=== PATIENT | female | born 1970 | race Caucasian/White ===

== ENCOUNTER 2018-10-06 10:25 | Day surgery (SDC) | payer OTHER ==
[2018-10-06] VITALS (21 sets, daily range): BP systolic 120–170; BP diastolic 58–81; PULSE 82–96; RESP 15–18; Ht 160 cm; Wt 69.4 kg
[~2018-10-06] VITALS: Ht 160 cm; Wt 69.4 kg
[~2018-10-06 10:25] MED LIST: IRON1TAB78 PO; OMEP20CA9 PO; SOD CHLORIDE 0.9% 1,000 ML IV SCH
[2018-10-06] MEDS ORDERED: NITR-58 PO (11:01)
[2018-10-06] MEDS ORDERED: NOL20 PO (11:02)
[2018-10-06] MEDS ORDERED: METR70GE15 VAG (11:03)
[2018-10-06] MEDS ORDERED: POLYMYXIN/BACITRACIN 1L IRRIG ONE (11:48)
[2018-10-06] MEDS ORDERED: BUPIVACAINE 0.25%/EPI (SDV) 30 ML INJ ONE (11:48)
[2018-10-06] MEDS ORDERED: EPINEPHrine 1 MG INJ ONE (11:53)
--- NOTE | 2018-10-06 11:55 | HPN ---
Date/Time of Note Date/Time of Note DATE: 10/06/18 TIME: 11:54 Interval H&P Admission Note Pt. seen H&P reviewed: Systems changes noted below patient treated for symptomatic urinary tract infection. will only perform breast reduction and port removal today RADHA ADAMS MD Oct 06, 2018 11:55
--- NOTE | 2018-10-06 11:57 | OPR ---
Date/Time of Note Date/Time of Note DATE: 10/06/18 TIME: 11:55 Operative Report Free Text/Dictation Plastic Surgery Operative Report Preoperative diagnosis: macromastia and cervicalgia Postoperative diagnosis: same Procedure:bilateral breast reduction Surgeon: magdalena Candelario.: JERRY briceño Anesthesia:general EBL:min IV fluids:per flow sheet Findings:n/a Complications:none Dispo:home Indications for procedure:48 yo F presents for breast reconstruction. The orginal plan was to perform a left latissimus flap + regional education coordinator and a right reduction, but she developed a UTI and due to the increased risk of infection we will only perform a right reduction today. We discussed the risks, benefits, and alternatives of performing this procedure including the risks of bleeding, infection, wound healing problems, changes in nipple sensation, partial or total nipple necrosis, asymmetry, fat necrosis, seroma, and for revision. The patient states that she understands these risks and would like to proceed with the procedure. All questions were answered, no guarantees were given with regards the outcome of this procedure Description of procedure: Preoperatively, with the patient in the sitting position, a right Paul pattern reduction mammoplasty with vertical limbs of 8 cm and pedicle width of 8cm was marked. The patient was taken to the operating room at [facility] where general anesthesia was induced. Next, she was prepped and draped in the usual sterile fashion. First, the 42 mm areola marker was placed around the areola and total of 40cc of a dilute epinephrine with exparel solution was injected into the planned area of de-epithelialization in the breast. The pedicle was then de-epithelialized with the 10 blade. Attention was then turned to the left breast where the incision around the pedicle was deepened with the peak plasma blade. Next, the remainder of the incisions were made with the peak plasma blade, and a medial flap was developed. A lateral flap was then developed with the plasma blade as well, and then the medial and lateral dissections were joined superiorly. The incisions around the pedicle were deepened to the level of the chest wall, taking special care to leave a fascial layer over the chest wall to preserve sensation, and then the tissue intervening between the flaps and pedicle was excised. The breast was irrigated with antibiotic irrigation, hemostasis was achieved with the bipolar cautery, and then the breast was towel clipped closed. The breast was inspected and had achieved the desired result. Therefore, the towel clips were removed, the breast was irrigated with antibiotic irrigation, hemostasis was achieved with the bipolar cautery, and 60cc of the same exparel solution were injected throughout the breast. A #15 Tyrese drain was inserted into the breast through a stab incision laterally and was secured with 2-0 nylon suture. A 3 way stitch was placed with 2-0 vicryl suture. Next, the incisions were closed with a deep layer of 3-0 Vicryl sutures, 4-0 Monocryl suture, and then steristrips. 3cc of the same solution was injected into the port scar. The incision was opened with the 10 blade and dissection proceeded with the cautery to the port capsule. The capsule was opened and the port was dissected free with the scissors and was removed in its entirety. Pressure was held for 5 minutes and there was no bleeding. Therefore, the incision was irrigated with antibiotic irrigation, hemostasis was achieved with the bipolar cautery, and the incision was closed with 3-0 vicryl suture and 4-0 monocryl suture. The patient tolerated the procedure well, there were no complications, follow up information and wound care instructions were given. The nipples were pink and viable at the completion of the case. The patient tolerated the procedure well, there were no complications, she'll follow up in 1 week Preoperative Diagnosis history of left breast CA Postoperative Diagnosis saame Operation/Procedure Performed right breast reduction Surgeon see signature line Video Manager JERRY briceño Anesthesia Type: general Estimated Blood Loss: minimal Transfusion none Specimen breast tissue Grafts/Implants none Complications none Pt Condition Post Procedure: stable Procedure Description see dictation RADHA ADAMS MD Oct 06, 2018 11:57
[2018-10-06] MEDS ORDERED: ACETAMINOPHEN 325 MG TAB PO PRN (12:00)
[2018-10-06] MEDS ORDERED: morphine 2 MG INJ IV PRN (12:00)
[2018-10-06] MEDS ORDERED: HYDROCODONE/APAP (5/325) TAB PO PRN (12:00)
[2018-10-06] MEDS ORDERED: ONDANSETRON 4 MG INJ IV PRN (12:00)
--- NOTE | 2018-10-06 12:03 | PREAC ---
Date/Time of Note Date/Time of Note DATE: 10/06/18 TIME: 12:00 Anesthesia Eval and Record Evaluation Time Pre-Procedure Interview DATE: 10/06/18 TIME: 12:00 Age 48 Sex female NPO: 8 hrs Preoperative diagnosis s/p Breast Cancer and Mastectomy Planned procedure Right Breast reduction Past Medical History Past Medical History: Includes Musculoskeletal: Other (Hx of Breast Cancer) Infection(s): Other (UTI Hx on ABX) Surgery & Anesthesia Issues No known issue Meds Anticoagulation: No Beta Duglas within 24 hr: No Reason Beta Duglas not given: Pt. not on B-Duglas Reported Medications Metronidazole* (Metrogel* Vaginal) 0.75% -70 Gram Gel.w.appl, 1 APPFUL VAG HS, TUB 10/06/18 Tamoxifen Citrate* (Tamoxifen Citrate*) 20 Mg Tab, 20 MG PO DAILY, TAB 10/06/18 Nitrofurantoin Monohyd Macrocr* (Macrobid*) 100 Mg Capsr, 100 MG PO BID, CAP STARTED 10-01-18 FOR 7 DAYS 10/06/18 Discontinued Reported Medications Iron,Carbonyl/Vit C/Vit B12/Fa (IRON 100 PLUS TABLET) 1 Each Tablet, 1 EACH PO, TAB 10/06/15 Omeprazole* (Prilosec*) 20 Mg Capsule.dr, 20 MG PO BID, CAP 10/06/15 Current Medications Sodium Chloride 1,000 ml @ 20 mls/hr Q24H IV Last administered on 10/06/18at 11:19; Admin Dose 20 MLS/HR; Start 10/06/18 at 07:00; Stop 10/08/18 at 08:59 Acetaminophen/ Hydrocodone Bitart ([place] (5/325)) 2 tab Q4H PRN PO .PAIN 4-6; Start 10/06/18 at 12:00 Morphine Sulfate (morphine) 2 mg ONCE PRN IV .SEVERE PAIN 7-10; Start 10/06/18 at 12:00 Ondansetron HCl (Zofran Inj) 4 mg Q6H PRN IV NAUSEA/VOMITING; Start 10/06/18 at 12:00 Acetaminophen (Tylenol Tab) 325 mg Q4H PRN PO MILD PAIN(1-3)OR ELEVATED TEMP; Start 10/06/18 at 12:00 Meds reviewed: Yes Allergies Coded Allergies: No Known Drug Allergies (Unverified Allergy, Unknown, 10/06/18) Allergies Reviewed: Yes Labs/Studies Labs Reviewed: Reviewed by anesthesiologist test: Negative Studies: ECG (n/a), CXR (n/a) Pre-procedure Exam Last vitals Vital Signs Date Temp Pulse Resp B/P (MAP) Pulse Ox O2 O2 Flow FiO2 Time Delivery Rate 10/06/18 98.7 88 18 123/75 96 Room Air 11:21 (91) Airway: Adequate mouth opening, Adequate thyromental dist Mallampati: Mallampati II Teeth: Normal Lung: Normal Heart: Normal ASA Physical Status ASA physical status: 2 Emergency: None Planned Anesthetic General/MAC: ETT Planned Pain Management Parenteral pain med Pre-operative Attestations Prior to commencing anesthesia and surgery, the patient was re-evaluated, there was verification of: *The patient's identity *The results of appropriate recent lab work and preoperative vital signs *The above evaluation not changing prior to induction *Anesthetic plan, risk benefits, alternative and complications discussed with patient/family; questions answered; patient/family understands, accepts and wishes to proceed. TERRIE BOSS MD Oct 06, 2018 12:03
[2018-10-06] MEDS ORDERED: MIDAZOLAM 1 MG/ML 2 ML INJ ONE (12:28)
[2018-10-06] MEDS ORDERED: ROCURONIUM 50 MG INJ ONE (12:28)
[2018-10-06] MEDS ORDERED: FENTAnyl 50 MCG/ML VIAL ONE ×2 (12:28→14:32)
[2018-10-06] MEDS ORDERED: CEFAZOLIN 1 GM INJ ONE (12:28)
[2018-10-06] MEDS ORDERED: PROPOFOL 20 ML ONE (12:28)
[2018-10-06] MEDS ORDERED: BUPIVACAINE LIPOSOME/PF 266 MG/20 ML VIAL INFIL SCH (12:30)
[2018-10-06] MEDS ORDERED: ONDANSETRON 4 MG INJ ONE (13:20)
[2018-10-06] MEDS ORDERED: DEXAMETHASONE 4 MG/ML 5 ML INJ ONE (13:20)
[2018-10-06] MEDS ORDERED: METOCLOPRAMIDE 10 MG INJ ONE (13:20)
[2018-10-06] MEDS ORDERED: SUGAMMADEX SODIUM 200 MG/2 ML VIAL IV ONE (13:20)
--- NOTE | 2018-10-06 14:41 | PAC ---
Date/Time of Note Date/Time of Note DATE: 10/06/18 TIME: 14:40 Post-Anesthesia Notes Post-Anesthesia Note Last documented vital signs Vital Signs Date Temp Pulse Resp B/P (MAP) Pulse Ox O2 O2 Flow FiO2 Time Delivery Rate 10/06/18 97.7 88 18 123/75 99 face mask 8 L 14:35 (91) Activity: WNL Respiratory function: WNL Cardiovascular function: WNL Mental status: Baseline Pain reasonably controlled: Yes Hydration appropriate: Yes Nausea/Vomiting absent: Yes TERRIE BOSS MD Oct 06, 2018 14:41
[2018-10-10] MEDS ORDERED: MIDAZOLAM 1 MG/ML 2 ML INJ ONE ×2 (08:43)
[2018-10-10] MEDS ORDERED: FENTAnyl 50 MCG/ML VIAL ONE (08:43)
[2018-10-10] MEDS ORDERED: PROPOFOL 20 ML ONE (08:44)
[2018-10-10] MEDS ORDERED: ONDANSETRON 4 MG INJ ONE (08:49)
== END 2018-10-06 17:05 | disposition home or self-care (01) ==
LOC: SDS 10:25 → REC 10:25 → UNDOADMIN 10:25 → EDSTATUS 12:00 → SDS 17:05 → UNDODISIN 17:05
PROVIDERS: ATTEND Surgery Plastic and Reconstructive Surgery
DX: N62 Hypertrophy of breast (principal); N39.0 Urinary tract infection, site not specified; Z85.3 Personal history of malignant neoplasm of breast; Z79.810 Long term (current) use of selective estrogen receptor modulators (SERMs)
CPT/HCPCS: 19318; 81001; 88300; 88305; C9290; J0171; J0690; J1100; J2250; J2405; J2765; J3010; Z7512; Z7610